=== PATIENT | female | born 1940 | race African-American/Black ===

== ENCOUNTER 2018-08-19 12:34 | Inpatient (IN) ==
[2018-08-19] MEDS ORDERED: ALBUTEROL/IPRATROPIUM 3 ML NEB RESP TX PRN (12:37)
[2018-08-19] MEDS: ALBUTEROL/IPRATROPIUM 3 ML NEB RESP TX SCH (20:30)
[2018-08-19 21:03] LABS: Albumin 3.7 G/DL (3.4-5.0); Bilirubin,Total 0.4 MG/DL (0.2-1.0); Calcium 8.8 MG/DL (8.5-10.1); Osmolality,Calculated 277.5 MOS/KG (273-304); Potassium 4.2 MMOL/L (3.5-5.1); Total Protein 7.4 G/DL (6.4-8.3)
[2018-08-19] MEDS ORDERED: predniSONE 20 MG TABLET PO ONE (23:57)
[2018-08-20] MEDS ORDERED: CLORAZEPATE 3.75 MG TABLET PO PRN (00:22)
[2018-08-20] MEDS ORDERED: CARISOPRODOL 350 MG TABLET PO PRN (00:22)
[2018-08-20] MEDS: CEFUROXIME 500 MG TABLET PO SCH ×3 (00:32→21:37)
[2018-08-20] MEDS: CLINDAMYCIN 150 MG CAPSULE PO SCH ×4 (00:33→21:38)
[2018-08-20 02:43] LABS: Apearance,Urine CLEAR (Clear); Bilirubin,Urine Negative (Negative); Blood, Urine Negative (Negative); Glucose,Urine (UA) Negative (Negative); Ketones,Urine Negative (Negative); Nitrite,Urine Negative (Negative); Protein,Urine Negative; RBC,Urine 4 /HPF (0-4); Urine Color Yellow (Yellow); Urine Specific Gravity 1.011 (1.001-1.035); Urine Urobilinogen < 2.0 EU/DL (0.2-1.0); WBC,Urine 4 /HPF (0-6)
[2018-08-20] MEDS: DEXTROSE 5% NACL 0.45% 1,000 ML IV SCH ×2 (03:42→13:50)
[2018-08-20] MEDS: MEROPENEM 1,000 MG in SODIUM CHLORIDE 0.9% 100 ML IV SCH ×4 (03:43→21:40)
[2018-08-20] MEDS: CLINDAMYCIN INJ 300 MG in PREMIX 1 EACH IV SCH ×4 (03:43→15:57)
[2018-08-20] MEDS: methylPREDNISolone SOD SUC 40 MG/1 ML VIAL IV SCH ×3 (03:43→21:33)
[2018-08-20 05:43] LABS: Basophils % 0.6 % (0.0-0.8); Hematocrit 42.2 VOL% (35.7-47.0); Hemoglobin 13.1 GM/DL (12.0-16.0); Immature Granulocytes % 0.4 %; Immature Granulocytes Absolute 0.03 #; Lymphocytes # 0.7 10*3/uL (1.4-4.0); Lymphocytes % 9.6 % (21.3-54.2); Mean Corpuscular Hemoglobin 28 PG (27-34); Mean Corpuscular Volume 89.2 FL (87-102); Mean Platelet Volume 9.6 FL (9.6-12.0); Monocytes # 0.2 10*3/uL (0.11-0.8); Monocytes % 2.9 % (1.7-12.7); Neutrophils # 6.3 10*3/uL (1.4-7.4); Neutrophils % 86.5 % (38.7-73.9); Platelet Count 221 T/CUMM (130-400); Red Blood Count 4.73 MC/CUMM (3.8-5.5); White Blood Count 7.3 T/CUMM (4-12)
[2018-08-20 05:52] LABS: INR 1.7; PT Patient Result 18.3 SECS
[2018-08-20 06:11] LABS: Calcium 8.8 MG/DL (8.5-10.1); Osmolality,Calculated 283.7 MOS/KG (273-304); Potassium 4.3 MMOL/L (3.5-5.1)
[2018-08-20] MEDS ORDERED: IPRATROPIUM 500 MCG/2.5 ML NEB RESP TX SCH (07:00)
[2018-08-20] MEDS: ALBUTEROL/IPRATROPIUM 3 ML NEB RESP TX SCH ×4 (07:17→19:16)
[2018-08-20] MEDS ORDERED: NON-FORMULARY MEDICATION (Alendronate [Fosamax] 70 MG) PO SCH (07:30)
[2018-08-20] MEDS ORDERED: NON-FORMULARY MEDICATION (Cod Liver Oil [Cod Liver Oil] 1 EACH) PO SCH (09:00)
[2018-08-20] MEDS ORDERED: methylPREDNISolone 4 MG TABLET PO SCH (09:00)
[2018-08-20] MEDS: FERROUS SULFATE 325 MG TABLET PO SCH ×2 (09:54→21:37)
[2018-08-20] MEDS: FLUTICASONE 50 MCG NASAL SPRAY 16 GM BOTTLE BOTH NARES SCH (09:54)
[2018-08-20] MEDS: CALCIUM (CARBONATE) 500 MG TABLET PO SCH (09:54)
[2018-08-20] MEDS: MAGNESIUM CHLORIDE 64 MG TABLET PO SCH ×2 (09:54→21:37)
[2018-08-20] MEDS: POTASSIUM CHLORIDE 20 MEQ TABLET PO SCH (09:54)
[2018-08-20] MEDS: FLUTICASONE/SALMETEROL 250-50 DISKUS 14 DOSE INH SCH (09:54)
[2018-08-20] MEDS: WARFARIN 4 MG TABLET PO SCH (17:40)
[2018-08-20] MEDS ORDERED: WARFARIN 4 MG TABLET PO SCH (18:00)
[2018-08-20] MEDS: MONTELUKAST 10 MG TABLET PO SCH (21:37)
[2018-08-21] MEDS: MEROPENEM 1,000 MG in SODIUM CHLORIDE 0.9% 100 ML IV SCH ×3 (03:49→21:29)
[2018-08-21] MEDS: CLINDAMYCIN INJ 300 MG in PREMIX 1 EACH IV SCH ×3 (05:44→22:33)
[2018-08-21] MEDS: CLINDAMYCIN 150 MG CAPSULE PO SCH (05:47)
[2018-08-21] MEDS: DEXTROSE 5% NACL 0.45% 1,000 ML IV SCH ×3 (06:23→22:49)
[2018-08-21 06:38] LABS: Basophils % 0.2 % (0.0-0.8); Hematocrit 38.2 VOL% (35.7-47.0); Hemoglobin 11.6 GM/DL (12.0-16.0); Immature Granulocytes % 0.4 %; Immature Granulocytes Absolute 0.02 #; Lymphocytes # 0.9 10*3/uL (1.4-4.0); Lymphocytes % 15.9 % (21.3-54.2); Mean Corpuscular HGB Conc 30.4 GM/DL (32-36); Mean Corpuscular Hemoglobin 27 PG (27-34); Mean Corpuscular Volume 89.9 FL (87-102); Mean Platelet Volume 9.5 FL (9.6-12.0); Monocytes # 0.3 10*3/uL (0.11-0.8); Monocytes % 5.5 % (1.7-12.7); Neutrophils # 4.3 10*3/uL (1.4-7.4); Platelet Count 199 T/CUMM (130-400); Red Blood Count 4.25 MC/CUMM (3.8-5.5); Red Cell Distribution Width 14.2 % (9.3-17.3); White Blood Count 5.5 T/CUMM (4-12)
[2018-08-21 06:46] LABS: INR 1.7; PT Patient Result 18.1 SECS
[2018-08-21 07:08] LABS: Calcium 8.8 MG/DL (8.5-10.1); Osmolality,Calculated 285.3 MOS/KG (273-304); Potassium 4.5 MMOL/L (3.5-5.1)
[2018-08-21] MEDS: ALBUTEROL/IPRATROPIUM 3 ML NEB RESP TX SCH ×4 (07:26→20:18)
[2018-08-21] MEDS: methylPREDNISolone SOD SUC 40 MG/1 ML VIAL IV SCH ×2 (08:57→21:26)
[2018-08-21] MEDS: CEFUROXIME 500 MG TABLET PO SCH (09:09)
[2018-08-21] MEDS: POTASSIUM CHLORIDE 20 MEQ TABLET PO SCH (09:13)
[2018-08-21] MEDS: MAGNESIUM CHLORIDE 64 MG TABLET PO SCH ×2 (09:13→21:31)
[2018-08-21] MEDS: CALCIUM (CARBONATE) 500 MG TABLET PO SCH (09:13)
[2018-08-21] MEDS: FERROUS SULFATE 325 MG TABLET PO SCH ×2 (09:13→21:32)
[2018-08-21] MEDS: FLUTICASONE 50 MCG NASAL SPRAY 16 GM BOTTLE BOTH NARES SCH (09:13)
[2018-08-21] MEDS: FLUTICASONE/SALMETEROL 250-50 DISKUS 14 DOSE INH SCH (09:14)
[2018-08-21] MEDS: WARFARIN 4 MG TABLET PO SCH (18:14)
[2018-08-21] MEDS: MONTELUKAST 10 MG TABLET PO SCH (21:32)
[2018-08-22] MEDS: MEROPENEM 1,000 MG in SODIUM CHLORIDE 0.9% 100 ML IV SCH ×3 (03:39→20:52)
[2018-08-22 05:24] LABS: Hematocrit 38.1 VOL% (35.7-47.0); Hemoglobin 11.4 GM/DL (12.0-16.0); Immature Granulocytes % 0.6 %; Immature Granulocytes Absolute 0.04 #; Lymphocytes # 0.8 10*3/uL (1.4-4.0); Lymphocytes % 13.1 % (21.3-54.2); Mean Corpuscular HGB Conc 29.9 GM/DL (32-36); Mean Corpuscular Hemoglobin 28 PG (27-34); Mean Corpuscular Volume 92.9 FL (87-102); Mean Platelet Volume 9.5 FL (9.6-12.0); Monocytes # 0.2 10*3/uL (0.11-0.8); Neutrophils # 5.4 10*3/uL (1.4-7.4); Neutrophils % 83.3 % (38.7-73.9); Platelet Count 182 T/CUMM (130-400); Red Cell Distribution Width 14.1 % (9.3-17.3); White Blood Count 6.4 T/CUMM (4-12)
[2018-08-22] MEDS: CLINDAMYCIN INJ 300 MG in PREMIX 1 EACH IV SCH ×3 (05:45→22:22)
[2018-08-22 05:54] LABS: Calcium 8.7 MG/DL (8.5-10.1); Osmolality,Calculated 277.7 MOS/KG (273-304); Potassium 4.9 MMOL/L (3.5-5.1)
[2018-08-22 06:52] LABS: INR 1.7; PT Patient Result 18.1 SECS
[2018-08-22] MEDS: ALBUTEROL/IPRATROPIUM 3 ML NEB RESP TX SCH ×4 (07:11→19:22)
[2018-08-22] MEDS: FLUTICASONE/SALMETEROL 250-50 DISKUS 14 DOSE INH SCH (09:08)
[2018-08-22] MEDS: FERROUS SULFATE 325 MG TABLET PO SCH ×2 (09:09→20:49)
[2018-08-22] MEDS: MAGNESIUM CHLORIDE 64 MG TABLET PO SCH ×2 (09:09→20:49)
[2018-08-22] MEDS: CALCIUM (CARBONATE) 500 MG TABLET PO SCH (09:09)
[2018-08-22] MEDS: POTASSIUM CHLORIDE 20 MEQ TABLET PO SCH (09:09)
[2018-08-22] MEDS: methylPREDNISolone SOD SUC 40 MG/1 ML VIAL IV SCH ×2 (09:09→20:47)
[2018-08-22] MEDS: FLUTICASONE 50 MCG NASAL SPRAY 16 GM BOTTLE BOTH NARES SCH (09:10)
[2018-08-22] MEDS: DEXTROSE 5% NACL 0.45% 1,000 ML IV SCH ×2 (13:17→16:18)
[2018-08-22] MEDS: WARFARIN 4 MG TABLET PO SCH (18:28)
[2018-08-22] MEDS: MONTELUKAST 10 MG TABLET PO SCH (20:49)
[2018-08-23] MEDS: MEROPENEM 1,000 MG in SODIUM CHLORIDE 0.9% 100 ML IV SCH ×3 (04:14→20:15)
[2018-08-23] MEDS: CLINDAMYCIN INJ 300 MG in PREMIX 1 EACH IV SCH (05:40)
[2018-08-23 06:25] LABS: Basophils % 0.1 % (0.0-0.8); Hematocrit 39.2 VOL% (35.7-47.0); Immature Granulocytes % 0.6 %; Immature Granulocytes Absolute 0.06 #; Lymphocytes # 1.3 10*3/uL (1.4-4.0); Mean Corpuscular HGB Conc 30.6 GM/DL (32-36); Mean Corpuscular Hemoglobin 28 PG (27-34); Mean Corpuscular Volume 89.9 FL (87-102); Mean Platelet Volume 9.1 FL (9.6-12.0); Monocytes # 0.4 10*3/uL (0.11-0.8); Monocytes % 4.4 % (1.7-12.7); Neutrophils # 8.1 10*3/uL (1.4-7.4); Neutrophils % 81.9 % (38.7-73.9); Platelet Count 240 T/CUMM (130-400); Red Blood Count 4.36 MC/CUMM (3.8-5.5); Red Cell Distribution Width 14.2 % (9.3-17.3); White Blood Count 9.9 T/CUMM (4-12)
[2018-08-23 06:31] LABS: INR 1.7; PT Patient Result 18.5 SECS
[2018-08-23 06:42] LABS: Calcium 9.3 MG/DL (8.5-10.1); Osmolality,Calculated 282.3 MOS/KG (273-304); Potassium 4.1 MMOL/L (3.5-5.1)
[2018-08-23] MEDS: ALBUTEROL/IPRATROPIUM 3 ML NEB RESP TX SCH ×4 (07:28→19:23)
[2018-08-23] MEDS: CALCIUM (CARBONATE) 500 MG TABLET PO SCH (09:49)
[2018-08-23] MEDS: POTASSIUM CHLORIDE 20 MEQ TABLET PO SCH (09:49)
[2018-08-23] MEDS: MAGNESIUM CHLORIDE 64 MG TABLET PO SCH ×2 (09:49→21:34)
[2018-08-23] MEDS: methylPREDNISolone SOD SUC 40 MG/1 ML VIAL IV SCH ×2 (09:50→20:15)
[2018-08-23] MEDS: FLUTICASONE 50 MCG NASAL SPRAY 16 GM BOTTLE BOTH NARES SCH (09:50)
[2018-08-23] MEDS: FLUTICASONE/SALMETEROL 250-50 DISKUS 14 DOSE INH SCH (09:50)
[2018-08-23] MEDS: FERROUS SULFATE 325 MG TABLET PO SCH ×3 (09:51→21:37)
[2018-08-23] MEDS: DEXTROSE 5% NACL 0.45% 1,000 ML IV SCH (13:30)
[2018-08-23] MEDS: PSYLLIUM POWDER 3.7 GM/PACK PO SCH ×2 (15:58→21:35)
[2018-08-23 16:17] LABS: Apearance,Urine CLEAR (Clear); Bilirubin,Urine Negative (Negative); Blood, Urine Negative (Negative); Glucose,Urine (UA) Negative (Negative); Ketones,Urine 5 mg/dL (Negative); Nitrite,Urine Negative (Negative); Protein,Urine Negative; RBC,Urine 1 /HPF (0-4); Urine Color Straw (Yellow); Urine Urobilinogen < 2.0 EU/DL (0.2-1.0); WBC,Urine 4 /HPF (0-6)
[2018-08-23] MEDS: WARFARIN 4 MG TABLET PO SCH (17:24)
[2018-08-23] MEDS: ROSUVASTATIN 10 MG TABLET PO SCH (21:34)
[2018-08-23] MEDS: MONTELUKAST 10 MG TABLET PO SCH (21:34)
[2018-08-24] MEDS: MEROPENEM 1,000 MG in SODIUM CHLORIDE 0.9% 100 ML IV SCH ×4 (03:57→22:05)
[2018-08-24 05:28] LABS: INR 1.6; PT Patient Result 17.7 SECS
[2018-08-24] MEDS: ALBUTEROL/IPRATROPIUM 3 ML NEB RESP TX SCH ×4 (07:11→20:22)
[2018-08-24] MEDS: CALCIUM (CARBONATE) 500 MG TABLET PO SCH (09:44)
[2018-08-24] MEDS: MAGNESIUM CHLORIDE 64 MG TABLET PO SCH ×2 (09:44→21:08)
[2018-08-24] MEDS: POTASSIUM CHLORIDE 20 MEQ TABLET PO SCH (09:44)
[2018-08-24] MEDS: FLUTICASONE 50 MCG NASAL SPRAY 16 GM BOTTLE BOTH NARES SCH (09:44)
[2018-08-24] MEDS: FLUTICASONE/SALMETEROL 250-50 DISKUS 14 DOSE INH SCH (09:44)
[2018-08-24] MEDS: methylPREDNISolone SOD SUC 40 MG/1 ML VIAL IV SCH ×2 (09:44→21:00)
[2018-08-24] MEDS: PSYLLIUM POWDER 3.7 GM/PACK PO SCH ×3 (09:44→21:09)
[2018-08-24] MEDS: FERROUS SULFATE 325 MG TABLET PO SCH ×3 (09:45→21:10)
[2018-08-24] MEDS: WARFARIN 4 MG TABLET PO SCH (18:10)
[2018-08-24] MEDS: MONTELUKAST 10 MG TABLET PO SCH (21:08)
[2018-08-25] MEDS: MEROPENEM 1,000 MG in SODIUM CHLORIDE 0.9% 100 ML IV SCH ×3 (05:04→16:27)
[2018-08-25 05:32] LABS: INR 1.4; PT Patient Result 14.9 SECS
[2018-08-25] MEDS: ALBUTEROL/IPRATROPIUM 3 ML NEB RESP TX SCH ×4 (07:21→19:26)
[2018-08-25] MEDS: methylPREDNISolone SOD SUC 40 MG/1 ML VIAL IV SCH ×2 (09:35→16:27)
[2018-08-25] MEDS: PSYLLIUM POWDER 3.7 GM/PACK PO SCH ×3 (09:53→22:16)
[2018-08-25] MEDS: FERROUS SULFATE 325 MG TABLET PO SCH ×3 (10:18→22:24)
[2018-08-25] MEDS: FLUTICASONE 50 MCG NASAL SPRAY 16 GM BOTTLE BOTH NARES SCH (10:18)
[2018-08-25] MEDS: MAGNESIUM CHLORIDE 64 MG TABLET PO SCH ×2 (10:18→22:15)
[2018-08-25] MEDS: FLUTICASONE/SALMETEROL 250-50 DISKUS 14 DOSE INH SCH (10:18)
[2018-08-25] MEDS: POTASSIUM CHLORIDE 20 MEQ TABLET PO SCH (10:18)
[2018-08-25] MEDS: CALCIUM (CARBONATE) 500 MG TABLET PO SCH (10:18)
[2018-08-25] MEDS ORDERED: WARFARIN 4 MG TABLET PO SCH (10:51)
[2018-08-25] MEDS: AZELASTINE NASAL 137 MCG/SPRAY 30 ML BOTTLE BOTH NARES SCH ×2 (12:43→22:15)
[2018-08-25] MEDS: WARFARIN 2 MG TABLET PO SCH (17:42)
[2018-08-25] MEDS: MONTELUKAST 10 MG TABLET PO SCH (22:15)
[2018-08-26] MEDS: MEROPENEM 1,000 MG in SODIUM CHLORIDE 0.9% 100 ML IV SCH ×3 (03:11→17:35)
[2018-08-26] MEDS: methylPREDNISolone SOD SUC 40 MG/1 ML VIAL IV SCH ×2 (04:51→17:33)
[2018-08-26 06:25] LABS: INR 1.4; PT Patient Result 15.2 SECS
[2018-08-26 06:29] LABS: Calcium 8.3 MG/DL (8.5-10.1); Osmolality,Calculated 282.4 MOS/KG (273-304); Potassium 4.5 MMOL/L (3.5-5.1)
[2018-08-26] MEDS: ALBUTEROL/IPRATROPIUM 3 ML NEB RESP TX SCH ×4 (08:05→19:18)
[2018-08-26] MEDS: FLUTICASONE 50 MCG NASAL SPRAY 16 GM BOTTLE BOTH NARES SCH (10:41)
[2018-08-26] MEDS: FLUTICASONE/SALMETEROL 250-50 DISKUS 14 DOSE INH SCH (10:41)
[2018-08-26] MEDS: FERROUS SULFATE 325 MG TABLET PO SCH ×2 (10:42→21:29)
[2018-08-26] MEDS: MAGNESIUM CHLORIDE 64 MG TABLET PO SCH ×2 (10:42→21:29)
[2018-08-26] MEDS: POTASSIUM CHLORIDE 20 MEQ TABLET PO SCH (10:42)
[2018-08-26] MEDS: CALCIUM (CARBONATE) 500 MG TABLET PO SCH (10:42)
[2018-08-26] MEDS: PSYLLIUM POWDER 3.7 GM/PACK PO SCH ×3 (10:43→21:29)
[2018-08-26] MEDS: AZELASTINE NASAL 137 MCG/SPRAY 30 ML BOTTLE BOTH NARES SCH ×2 (10:43→21:29)
[2018-08-26] MEDS: WARFARIN 2 MG TABLET PO SCH (17:32)
[2018-08-26] MEDS: ROSUVASTATIN 10 MG TABLET PO SCH (21:29)
[2018-08-26] MEDS: MONTELUKAST 10 MG TABLET PO SCH (21:29)
[2018-08-27] MEDS: MEROPENEM 1,000 MG in SODIUM CHLORIDE 0.9% 100 ML IV SCH ×3 (03:30→17:15)
[2018-08-27] MEDS: methylPREDNISolone SOD SUC 40 MG/1 ML VIAL IV SCH ×2 (05:00→17:16)
[2018-08-27 06:44] LABS: INR 1.7
[2018-08-27 06:56] LABS: Calcium 8.3 MG/DL (8.5-10.1); Osmolality,Calculated 285.3 MOS/KG (273-304); Potassium 4.5 MMOL/L (3.5-5.1)
[2018-08-27] MEDS: ALBUTEROL/IPRATROPIUM 3 ML NEB RESP TX SCH ×4 (07:36→19:35)
[2018-08-27] MEDS: MAGNESIUM CHLORIDE 64 MG TABLET PO SCH ×2 (08:48→21:38)
[2018-08-27] MEDS: CALCIUM (CARBONATE) 500 MG TABLET PO SCH (08:48)
[2018-08-27] MEDS: POTASSIUM CHLORIDE 20 MEQ TABLET PO SCH (08:48)
[2018-08-27] MEDS: PSYLLIUM POWDER 3.7 GM/PACK PO SCH ×3 (08:49→21:38)
[2018-08-27] MEDS: FERROUS SULFATE 325 MG TABLET PO SCH ×2 (08:49→21:38)
[2018-08-27] MEDS: FLUTICASONE 50 MCG NASAL SPRAY 16 GM BOTTLE BOTH NARES SCH (08:50)
[2018-08-27] MEDS: AZELASTINE NASAL 137 MCG/SPRAY 30 ML BOTTLE BOTH NARES SCH ×2 (08:51→21:38)
[2018-08-27] MEDS: FLUTICASONE/SALMETEROL 250-50 DISKUS 14 DOSE INH SCH (08:52)
[2018-08-27] MEDS: WARFARIN 2 MG TABLET PO SCH (17:15)
[2018-08-27] MEDS ORDERED: CARISOPRODOL 350 MG TABLET PO PRN (17:25)
[2018-08-27] MEDS: CLORAZEPATE 3.75 MG TABLET PO PRN (17:35)
[2018-08-27] MEDS: MONTELUKAST 10 MG TABLET PO SCH (21:38)
[2018-08-28] MEDS: MEROPENEM 1,000 MG in SODIUM CHLORIDE 0.9% 100 ML IV SCH ×3 (02:36→17:50)
[2018-08-28] MEDS: methylPREDNISolone SOD SUC 40 MG/1 ML VIAL IV SCH ×2 (05:08→17:50)
[2018-08-28 07:01] LABS: PT Patient Result 21.5 SECS
[2018-08-28] MEDS: ALBUTEROL/IPRATROPIUM 3 ML NEB RESP TX SCH ×4 (07:30→19:26)
[2018-08-28] MEDS: AZELASTINE NASAL 137 MCG/SPRAY 30 ML BOTTLE BOTH NARES SCH ×2 (08:39→21:15)
[2018-08-28] MEDS: PSYLLIUM POWDER 3.7 GM/PACK PO SCH ×3 (08:40→22:18)
[2018-08-28] MEDS: MAGNESIUM CHLORIDE 64 MG TABLET PO SCH ×2 (08:40→21:15)
[2018-08-28] MEDS: FLUTICASONE 50 MCG NASAL SPRAY 16 GM BOTTLE BOTH NARES SCH (08:40)
[2018-08-28] MEDS: FERROUS SULFATE 325 MG TABLET PO SCH ×2 (08:40→22:18)
[2018-08-28] MEDS: FLUTICASONE/SALMETEROL 250-50 DISKUS 14 DOSE INH SCH (08:40)
[2018-08-28] MEDS: POTASSIUM CHLORIDE 20 MEQ TABLET PO SCH (08:41)
[2018-08-28] MEDS: CALCIUM (CARBONATE) 500 MG TABLET PO SCH (08:41)
[2018-08-28] MEDS: CLORAZEPATE 3.75 MG TABLET PO PRN (11:47)
[2018-08-28] MEDS: WARFARIN 3 MG TABLET PO SCH (17:50)
[2018-08-28] MEDS: MONTELUKAST 10 MG TABLET PO SCH (21:15)
[2018-08-29] MEDS: MEROPENEM 1,000 MG in SODIUM CHLORIDE 0.9% 100 ML IV SCH ×3 (02:37→18:34)
[2018-08-29] MEDS: methylPREDNISolone SOD SUC 40 MG/1 ML VIAL IV SCH ×2 (06:03→18:34)
[2018-08-29 06:22] LABS: INR 2.3; PT Patient Result 24.7 SECS
[2018-08-29] MEDS: ALBUTEROL/IPRATROPIUM 3 ML NEB RESP TX SCH ×4 (07:30→19:51)
[2018-08-29] MEDS: AZELASTINE NASAL 137 MCG/SPRAY 30 ML BOTTLE BOTH NARES SCH ×2 (08:13→22:40)
[2018-08-29] MEDS: FLUTICASONE/SALMETEROL 250-50 DISKUS 14 DOSE INH SCH (08:16)
[2018-08-29] MEDS: FERROUS SULFATE 325 MG TABLET PO SCH ×2 (08:16→22:40)
[2018-08-29] MEDS: POTASSIUM CHLORIDE 20 MEQ TABLET PO SCH (08:16)
[2018-08-29] MEDS: CALCIUM (CARBONATE) 500 MG TABLET PO SCH (08:16)
[2018-08-29] MEDS: MAGNESIUM CHLORIDE 64 MG TABLET PO SCH ×2 (08:16→22:38)
[2018-08-29] MEDS: PSYLLIUM POWDER 3.7 GM/PACK PO SCH ×3 (08:17→22:40)
[2018-08-29] MEDS: FLUTICASONE 50 MCG NASAL SPRAY 16 GM BOTTLE BOTH NARES SCH (08:19)
[2018-08-29] MEDS: CLORAZEPATE 3.75 MG TABLET PO PRN (10:59)
[2018-08-29] MEDS: WARFARIN 3 MG TABLET PO SCH (18:33)
[2018-08-29] MEDS: MONTELUKAST 10 MG TABLET PO SCH (22:38)
[2018-08-30] MEDS: MEROPENEM 1,000 MG in SODIUM CHLORIDE 0.9% 100 ML IV SCH ×2 (03:01→10:25)
[2018-08-30 05:23] LABS: Basophils % 0.2 % (0.0-0.8); Hemoglobin 11.9 GM/DL (12.0-16.0); Immature Granulocytes % 1.2 %; Immature Granulocytes Absolute 0.12 #; Lymphocytes # 0.8 10*3/uL (1.4-4.0); Lymphocytes % 7.6 % (21.3-54.2); Mean Corpuscular HGB Conc 31.3 GM/DL (32-36); Mean Corpuscular Hemoglobin 28 PG (27-34); Mean Corpuscular Volume 89.4 FL (87-102); Mean Platelet Volume 9.2 FL (9.6-12.0); Monocytes # 0.5 10*3/uL (0.11-0.8); Monocytes % 4.8 % (1.7-12.7); Neutrophils # 8.5 10*3/uL (1.4-7.4); Neutrophils % 86.2 % (38.7-73.9); Platelet Count 208 T/CUMM (130-400); Red Blood Count 4.25 MC/CUMM (3.8-5.5); Red Cell Distribution Width 14.6 % (9.3-17.3); White Blood Count 9.9 T/CUMM (4-12)
[2018-08-30 05:44] LABS: INR 2.7
[2018-08-30] MEDS: methylPREDNISolone SOD SUC 40 MG/1 ML VIAL IV SCH (05:49)
[2018-08-30 06:02] LABS: PT Patient Result 29.3 SECS
[2018-08-30 06:11] LABS: Calcium 8.2 MG/DL (8.5-10.1); Osmolality,Calculated 282.4 MOS/KG (273-304); Potassium 4.6 MMOL/L (3.5-5.1)
[2018-08-30] MEDS: ALBUTEROL/IPRATROPIUM 3 ML NEB RESP TX SCH ×4 (07:33→19:38)
[2018-08-30] MEDS: FERROUS SULFATE 325 MG TABLET PO SCH ×2 (10:24→21:37)
[2018-08-30] MEDS: AZELASTINE NASAL 137 MCG/SPRAY 30 ML BOTTLE BOTH NARES SCH ×2 (10:24→21:45)
[2018-08-30] MEDS: CALCIUM (CARBONATE) 500 MG TABLET PO SCH (10:24)
[2018-08-30] MEDS: POTASSIUM CHLORIDE 20 MEQ TABLET PO SCH (10:24)
[2018-08-30] MEDS: MAGNESIUM CHLORIDE 64 MG TABLET PO SCH ×2 (10:24→21:36)
[2018-08-30] MEDS: FLUTICASONE 50 MCG NASAL SPRAY 16 GM BOTTLE BOTH NARES SCH (10:25)
[2018-08-30] MEDS: FLUTICASONE/SALMETEROL 250-50 DISKUS 14 DOSE INH SCH (10:27)
[2018-08-30] MEDS: PSYLLIUM POWDER 3.7 GM/PACK PO SCH ×4 (10:27→21:45)
[2018-08-30] MEDS: prednisoLONE 5 MG TABLET PO SCH ×2 (12:31→21:38)
[2018-08-30] MEDS: ROSUVASTATIN 10 MG TABLET PO SCH (21:36)
[2018-08-30] MEDS: CEFUROXIME 500 MG TABLET PO SCH (21:37)
[2018-08-30] MEDS: MONTELUKAST 10 MG TABLET PO SCH (23:54)
[2018-08-31] MEDS: ALBUTEROL/IPRATROPIUM 3 ML NEB RESP TX SCH ×2 (07:42→11:09)
[2018-08-31] MEDS: FERROUS SULFATE 325 MG TABLET PO SCH (09:02)
[2018-08-31] MEDS: CALCIUM (CARBONATE) 500 MG TABLET PO SCH (09:03)
[2018-08-31] MEDS: MAGNESIUM CHLORIDE 64 MG TABLET PO SCH (09:04)
[2018-08-31] MEDS: POTASSIUM CHLORIDE 20 MEQ TABLET PO SCH (09:04)
[2018-08-31] MEDS: CEFUROXIME 500 MG TABLET PO SCH (09:04)
[2018-08-31] MEDS: prednisoLONE 5 MG TABLET PO SCH (09:05)
[2018-08-31] MEDS: FLUTICASONE/SALMETEROL 250-50 DISKUS 14 DOSE INH SCH (09:06)
[2018-08-31] MEDS: AZELASTINE NASAL 137 MCG/SPRAY 30 ML BOTTLE BOTH NARES SCH (09:06)
[2018-08-31] MEDS: FLUTICASONE 50 MCG NASAL SPRAY 16 GM BOTTLE BOTH NARES SCH (09:07)
[2018-08-31 11:09] LABS: INR 2.7
[2018-08-31 11:16] LABS: PT Patient Result 29.4 SECS
[2018-08-31 12:07] VITALS: BP 122/71
[2018-08-31] MEDS: PSYLLIUM POWDER 3.7 GM/PACK PO SCH (12:15)
== END 2018-08-31 14:45 | disposition home health service (06) | DRG 202 ==
LOC: N.5E 17:25
PROVIDERS: ADMIT Internal Medicine Pulmonary Disease; ATTEND Internal Medicine Pulmonary Disease

== ENCOUNTER 2020-11-25 17:20 | Inpatient (IN) ==
[2020-11-25] MEDS ORDERED: methylPREDNISolone SOD SUC 125 MG/2 ML VIAL IV STA (18:00)
[2020-11-25 18:11] LABS: ABG Base Excess 1.3 MMOL/L (-2.5-2.5); ABG HCO3 25.2 MMOL/L (20-26); ABG Oxygen Saturation 74.7 % (95-100); ABG PO2 61.1 MM HG (80-95); ABG TCO2 34.7 MMOL/L (23-27)
[2020-11-25 18:14] LABS: ABG PH 7.065 (7.35-7.45)
[2020-11-25] MEDS ORDERED: ETOMIDATE 20 MG/10 ML VIAL IV STA (18:15)
[2020-11-25] MEDS ORDERED: ROCURONIUM 100 MG/10 ML VIAL IV STA (18:15)
[2020-11-25 18:25] LABS: Basophils % 0.3 % (0.0-0.8); Eosinophils % 0.2 % (0.00-10.9); Hematocrit 36.7 VOL% (35.7-47.0); Hemoglobin 10.3 GM/DL (12.0-16.0); Immature Granulocytes % 1.1 %; Immature Granulocytes Absolute 0.15 #; Lymphocytes # 5.3 10*3/uL (1.4-4.0); Lymphocytes % 39.9 % (21.3-54.2); Mean Corpuscular HGB Conc 28.1 GM/DL (32-36); Mean Corpuscular Volume 96.3 FL (87-102); Mean Platelet Volume 9.8 FL (9.6-12.0); Monocytes % 5.4 % (1.7-12.7); NRBC # 0.02 10*3/uL; Neutrophils % 53.1 % (38.7-73.9); Platelet Count 269 T/CUMM (130-400); Red Blood Count 3.81 MC/CUMM (3.8-5.5); Red Cell Distribution Width 14.6 % (9.3-17.3); White Blood Count 13.2 T/CUMM (4-12)
[2020-11-25] MEDS ORDERED: ETOMIDATE 20 MG/10 ML VIAL IV ONE (18:35)
[2020-11-25] MEDS ORDERED: ROCURONIUM 100 MG/10 ML VIAL IV ONE (18:35)
[2020-11-25] MEDS ORDERED: SODIUM CHLORIDE 0.9% 500 ML IV STA (18:43)
[2020-11-25 18:47] LABS: PT Patient Result 16.9 SECS (9.8-11.9)
[2020-11-25 18:49] LABS: INR 1.6
[2020-11-25 18:54] LABS: Alanine Aminotransferase < 9 U/L (13-56); Albumin 3.3 G/DL (3.4-5.0); Alkaline Phosphatase 40 U/L (45-117); Aspartate Amino Transferase 22 U/L (0-37); Blood Urea Nitrogen 28 MG/DL (7-18); Calcium 8.7 MG/DL (8.5-10.1); Carbon Dioxide 30 MMOL/L (21-32); Estimated Glom Filtration Rate 33 ML/MIN; Ferritin 58.3 ng/ml (8-252); Glucose 286 MG/DL (74-106); Osmolality,Calculated 290.7 MOS/KG (273-304); Sodium 138 MMOL/L (136-145); Total Protein 6.8 G/DL (5.0-7.5)
[2020-11-25] MEDS ORDERED: PIPERACILLIN/TAZOBACTAM 3,375 MG in SODIUM CHLORIDE 0.9% 100 ML IV STA (18:55)
[2020-11-25] MEDS ORDERED: SODIUM CHLORIDE 0.9% 1,000 ML IV STA (19:00)
[2020-11-25 19:08] LABS: Bilirubin,Urine Negative (Negative); Blood, Urine Negative (Negative); Glucose,Urine (UA) Negative (Negative); Hyaline Casts,Urine 11 /LPF (0-3); Ketones,Urine Negative (Negative); Mucus,Urine Occasional /LPF (Occasional); Nitrite,Urine Negative (Negative); Protein,Urine Negative; RBC,Urine 5 /HPF (0-4); Squamous Epithelial Cell,Urine Occasional /HPF (0-10); Urine Appearance CLEAR (Clear); Urine Color Yellow (Yellow); Urine Specific Gravity 1.025 (1.001-1.035); Urine Urobilinogen < 2.0 EU/DL (0.2-1.0); WBC,Urine 9 /HPF (0-6)
[2020-11-25 19:19] LABS: ABG Base Excess 6.6 MMOL/L (-2.5-2.5); ABG HCO3 30.3 MMOL/L (20-26); ABG Oxygen Saturation 93.1 % (95-100); ABG PCO2 54.7 MM HG (35-48); ABG PH 7.388 (7.35-7.45); ABG PO2 70.6 MM HG (80-95); ABG TCO2 30.1 MMOL/L (23-27); Allen Test Positive; Pt O2 Delivery Device Ventilator
[2020-11-25] MEDS: ALBUTEROL/IPRATROPIUM 3 ML NEB RESP TX STA ×2 (19:55)
[2020-11-25] MEDS: MIDAZOLAM 100 MG in SODIUM CHLORIDE 0.9% 80 ML IV PRN (21:22)
[2020-11-25] MEDS ORDERED: ALBUTEROL 2.5 MG/3 ML NEB RESP TX PRN (21:49)
[2020-11-25] MEDS ORDERED: DOBUTamine 500 MG/250 ML PREMIX IV PRN (21:55)
[2020-11-25 22:54] LABS: % Iron Saturation 27.3 % (18-50)
[2020-11-25 23:04] LABS: Folate 8.2 NG/ML (5.38-24.0)
[2020-11-25] MEDS: AZITHROMYCIN INJ 250 MG in SODIUM CHLORIDE 0.9% 250 ML IV SCH (23:09)
[2020-11-26] MEDS: PANTOPRAZOLE 40 MG VIAL IV SCH (00:09)
[2020-11-26] MEDS: methylPREDNISolone SOD SUC 40 MG/1 ML VIAL IV SCH ×4 (00:13→18:29)
[2020-11-26] MEDS: VANCOMYCIN INJ 750 MG in SODIUM CHLORIDE 0.9% 250 ML IV SCH (00:16)
[2020-11-26] MEDS: ALBUTEROL/IPRATROPIUM 3 ML NEB RESP TX SCH ×4 (01:06→19:09)
[2020-11-26 03:25] LABS: ABG Base Excess 6.8 MMOL/L (-2.5-2.5); ABG HCO3 30.8 MMOL/L (20-26); ABG PCO2 41.4 MM HG (35-48); ABG PH 7.489 (7.35-7.45); ABG PO2 195.2 MM HG (80-95); Allen Test Positive; Pt O2 Delivery Device Ventilator
[2020-11-26] MEDS: PIPERACILLIN/TAZOBACTAM 3,375 MG in SODIUM CHLORIDE 0.9% 100 ML IV SCH ×3 (04:30→20:50)
[2020-11-26 04:50] LABS: INR 1.9; PT Patient Result 19.8 SECS (9.8-11.9)
[2020-11-26 05:08] LABS: Osmolality,Calculated 292.1 MOS/KG (273-304); Risk Ratio 1.68; Thyroid Stimulating Hormone 0.284 uIU/ml (0.358-3.74)
[2020-11-26] MEDS ORDERED: POTASSIUM CHLORIDE RIDER 20 MEQ in PREMIX 1 EACH IV PRN (05:27)
[2020-11-26] MEDS ORDERED: POTASSIUM CHLORIDE 20 MEQ/15 ML UDCUP PER TUBE PRN (05:27)
[2020-11-26 05:36] LABS: Basophils % 0.1 % (0.0-0.8); Hematocrit 26.2 VOL% (35.7-47.0); Immature Granulocytes % 0.6 %; Immature Granulocytes Absolute 0.08 #; Lymphocytes # 0.3 10*3/uL (1.4-4.0); Lymphocytes % 1.9 % (21.3-54.2); Mean Corpuscular HGB Conc 30.5 GM/DL (32-36); Mean Platelet Volume 9.6 FL (9.6-12.0); Monocytes % 2.1 % (1.7-12.7); Neutrophils % 95.3 % (38.7-73.9); Platelet Count 183 T/CUMM (130-400); Red Blood Count 2.88 MC/CUMM (3.8-5.5); Red Cell Distribution Width 14.6 % (9.3-17.3); White Blood Count 14.4 T/CUMM (4-12)
[2020-11-26 05:50] LABS: Band Neutrophils 3 % (0-10); Hypochromasia 1+; Lymphocytes 2 % (20-55); Microcytosis 1+; Ovalocytes Slight; Segmented Neutrophils 94 % (50-85); Tear Drop Cells Slight; Total Cells Counted 100
[2020-11-26 05:51] LABS: Platelet Estimate Adequate
[2020-11-26] MEDS: BUDESONIDE 0.5 MG/2 ML NEB RESP TX SCH ×2 (07:34→19:09)
[2020-11-26] MEDS ORDERED: MAGNESIUM SULF RIDER 2 GM in PREMIX 1 EACH IV ONE (08:30)
[2020-11-26] MEDS: ASPIRIN EC 81 MG TABLET PO SCH (08:30)
[2020-11-26] MEDS: ROSUVASTATIN 10 MG TABLET PO SCH (08:31)
[2020-11-26] MEDS: ENOXAPARIN 60 MG/0.6 ML SYRINGE SUBCUT SCH ×2 (08:31→20:51)
[2020-11-26] MEDS: CARBIDOPA/LEVODOPA 25-100 MG TABLET PO SCH ×3 (08:31→20:51)
[2020-11-26] MEDS ORDERED: GLUCAGON 1 MG VIAL IM PRN (08:37)
[2020-11-26] MEDS ORDERED: DEXTROSE 50% 25 GM/50 ML VIAL IV PRN (08:37)
[2020-11-26] MEDS ORDERED: ENOXAPARIN 30 MG/0.3 ML SYRINGE SUBCUT SCH (09:00)
[2020-11-26] MEDS ORDERED: SODIUM CHLORIDE 0.9% 1,000 ML IV ONE (11:00)
[2020-11-26] MEDS: INSULIN REGULAR 100 UNIT/ML SUBCUT SCH ×2 (11:07→18:09)
[2020-11-26] MEDS ORDERED: MORPHINE 4 MG/1 ML VIAL IV PRN (16:47)
[2020-11-26] MEDS: MIDAZOLAM 100 MG in SODIUM CHLORIDE 0.9% 80 ML IV PRN (16:53)
[2020-11-26] MEDS ORDERED: WARFARIN 2 MG TABLET PO SCH (18:00)
[2020-11-26] MEDS ORDERED: METOPROLOL TARTRATE 25 MG TABLET PO SCH (21:00)
[2020-11-27] MEDS: ALBUTEROL/IPRATROPIUM 3 ML NEB RESP TX SCH ×4 (00:26→19:41)
[2020-11-27] MEDS: INSULIN REGULAR 100 UNIT/ML SUBCUT SCH ×5 (01:03→23:52)
[2020-11-27] MEDS: PANTOPRAZOLE 40 MG VIAL IV SCH ×2 (01:04→23:53)
[2020-11-27] MEDS: AZITHROMYCIN INJ 250 MG in SODIUM CHLORIDE 0.9% 250 ML IV SCH ×2 (01:04→23:53)
[2020-11-27] MEDS: methylPREDNISolone SOD SUC 40 MG/1 ML VIAL IV SCH ×3 (01:04→18:44)
[2020-11-27] MEDS: VANCOMYCIN INJ 750 MG in SODIUM CHLORIDE 0.9% 250 ML IV SCH (02:00)
[2020-11-27 04:32] LABS: Allen Test Positive; Pt O2 Delivery Device Ventilator
[2020-11-27 04:33] LABS: ABG Base Excess -3.3 MMOL/L (-2.5-2.5); ABG HCO3 21.7 MMOL/L (20-26); ABG PH 7.334 (7.35-7.45); ABG TCO2 21.2 MMOL/L (23-27)
[2020-11-27] MEDS: PIPERACILLIN/TAZOBACTAM 3,375 MG in SODIUM CHLORIDE 0.9% 100 ML IV SCH (04:43)
[2020-11-27 05:57] LABS: Basophils % 0.1 % (0.0-0.8); Hematocrit 24.2 VOL% (35.7-47.0); Hemoglobin 7.2 GM/DL (12.0-16.0); Immature Granulocytes % 1.5 %; Immature Granulocytes Absolute 0.17 #; Lymphocytes # 0.3 10*3/uL (1.4-4.0); Lymphocytes % 2.6 % (21.3-54.2); Mean Corpuscular HGB Conc 29.8 GM/DL (32-36); Mean Corpuscular Volume 92.4 FL (87-102); Mean Platelet Volume 10.2 FL (9.6-12.0); Monocytes % 6.6 % (1.7-12.7); NRBC # 0.03 10*3/uL; Neutrophils % 89.2 % (38.7-73.9); Platelet Count 187 T/CUMM (130-400); Red Blood Count 2.62 MC/CUMM (3.8-5.5); White Blood Count 11.6 T/CUMM (4-12)
[2020-11-27 06:15] LABS: Calcium 7.2 MG/DL (8.5-10.1); Osmolality,Calculated 297.1 MOS/KG (273-304)
[2020-11-27 06:17] LABS: PT Patient Result 30.3 SECS (9.8-11.9)
[2020-11-27 06:25] LABS: Band Neutrophils 3 % (0-10); Hypochromasia 1+; Lymphocytes 4 % (20-55); Microcytosis 1+; Ovalocytes Slight; Segmented Neutrophils 90 % (50-85); Total Cells Counted 100
[2020-11-27 06:26] LABS: Platelet Estimate Adequate
[2020-11-27] MEDS: BUDESONIDE 0.5 MG/2 ML NEB RESP TX SCH ×2 (07:19→19:41)
[2020-11-27] MEDS ORDERED: SODIUM CHLORIDE 0.9% 1,000 ML IV PRN (07:21)
[2020-11-27] MEDS: ASPIRIN EC 81 MG TABLET PO SCH (08:46)
[2020-11-27] MEDS: ROSUVASTATIN 10 MG TABLET PO SCH (08:47)
[2020-11-27] MEDS: cefTRIAXone 1,000 MG in SYRINGE 1 EACH IV SCH (09:33)
[2020-11-27] MEDS ORDERED: DIGOXIN 0.5 MG/2 ML AMP IV ONE (11:41)
[2020-11-27] MEDS ORDERED: FUROSEMIDE 40 MG/4 ML VIAL IV ONE (14:19)
[2020-11-27] MEDS ORDERED: PIPERACILLIN/TAZOBACTAM 3,375 MG in SODIUM CHLORIDE 0.9% 100 ML IV SCH (16:00)
[2020-11-27 18:17] VITALS: BP 96/64
[2020-11-27 18:17] LABS: Hematocrit 31.3 VOL% (35.7-47.0); Hemoglobin 9.3 GM/DL (12.0-16.0)
[2020-11-27] MEDS: MIDAZOLAM 100 MG in SODIUM CHLORIDE 0.9% 80 ML IV PRN (20:01)
[2020-11-27] MEDS: PHENYLEPHRINE INJ 160 MG in SODIUM CHLORIDE 0.9% 234 ML IV PRN (20:50)
[2020-11-28] MEDS: ALBUTEROL/IPRATROPIUM 3 ML NEB RESP TX SCH ×4 (00:16→19:49)
[2020-11-28 04:56] LABS: ABG Base Excess -8.5 MMOL/L (-2.5-2.5); ABG HCO3 17.2 MMOL/L (20-26); ABG Oxygen Saturation 71.3 % (95-100); ABG PCO2 45.8 MM HG (35-48); ABG PH 7.224 (7.35-7.45); ABG PO2 48.7 MM HG (80-95); ABG TCO2 17.8 MMOL/L (23-27)
[2020-11-28] MEDS: INSULIN REGULAR 100 UNIT/ML SUBCUT SCH ×2 (05:34→12:59)
[2020-11-28 05:40] LABS: Basophils % 0.3 % (0.0-0.8); Eosinophils # 0.1 10*3/uL (0.0-0.87); Eosinophils % 0.4 % (0.00-10.9); Hematocrit 31.6 VOL% (35.7-47.0); Hemoglobin 9.3 GM/DL (12.0-16.0); Immature Granulocytes % 2.8 %; Immature Granulocytes Absolute 0.32 #; Lymphocytes # 0.3 10*3/uL (1.4-4.0); Lymphocytes % 2.9 % (21.3-54.2); Mean Corpuscular HGB Conc 29.4 GM/DL (32-36); Mean Corpuscular Volume 94.6 FL (87-102); Monocytes % 4.5 % (1.7-12.7); NRBC # 0.64 10*3/uL; Neutrophils % 89.1 % (38.7-73.9); Red Blood Count 3.34 MC/CUMM (3.8-5.5); White Blood Count 11.4 T/CUMM (4-12)
[2020-11-28 05:41] LABS: Platelet Count 84 T/CUMM (130-400)
[2020-11-28] MEDS: methylPREDNISolone SOD SUC 40 MG/1 ML VIAL IV SCH (05:43)
[2020-11-28 05:51] LABS: INR 4.3
[2020-11-28 05:58] LABS: Hypochromasia 1+; Lymphocytes 3 % (20-55); Microcytosis 1+; Nucleated Red Blood Cells 8 (0-5); Platelet Estimate Decreased; Segmented Neutrophils 95 % (50-85); Total Cells Counted 100
[2020-11-28 06:08] LABS: Calcium 7.4 MG/DL (8.5-10.1); Osmolality,Calculated 303.3 MOS/KG (273-304); Potassium 5.3 MMOL/L (3.5-5.1)
[2020-11-28 06:16] LABS: Albumin 2.5 G/DL (3.4-5.0); Calcium 7.4 MG/DL (8.5-10.1); Osmolality,Calculated 298.5 MOS/KG (273-304); Potassium 5.4 MMOL/L (3.5-5.1); Total Protein 5.7 G/DL (5.0-7.5)
[2020-11-28] MEDS: BUDESONIDE 0.5 MG/2 ML NEB RESP TX SCH ×2 (07:41→19:54)
[2020-11-28] MEDS ORDERED: DIGOXIN 0.5 MG/2 ML AMP IV ONE (07:49)
[2020-11-28 07:52] LABS: Barbiturates Screen,Urine Negative (Negative); Benzodiazepines Screen,Urine Positive (Negative); Cannabinoid Screen,Urine Negative (Negative); Opiate Screen,Urine Positive (Negative); Phencyclidine Screen,Urine Negative (Negative)
[2020-11-28] MEDS ORDERED: NOREPINEPHRINE 16 MG in SODIUM CHLORIDE 0.9% 234 ML IV PRN (08:02)
[2020-11-28] MEDS: cefTRIAXone 1,000 MG in SYRINGE 1 EACH IV SCH (08:42)
[2020-11-28] MEDS: PHENYLEPHRINE INJ 160 MG in SODIUM CHLORIDE 0.9% 234 ML IV PRN (08:53)
[2020-11-28] MEDS ORDERED: ASPIRIN CHEW 81 MG TABLET PO SCH ×2 (09:00→12:30)
[2020-11-28 09:09] LABS: Hepatitis B Core IgM Quant 0.12 Index; Hepatitis B Surface Ag Quant < 0.10 Index; Hepatitis B Surface Ag Result Non-Reactive (NonReactive); Hepatitis C Virus Ab Quant 0.06 Index; Hepatitis C Virus Ab Result Non-Reactive (NonReactive)
[2020-11-28] MEDS ORDERED: MEROPENEM 500 MG in SODIUM CHLORIDE 0.9% 100 ML IV SCH (10:00)
[2020-11-28] MEDS ORDERED: SODIUM CHLORIDE 0.9% 1,000 ML IV SCH (10:00)
[2020-11-28] MEDS ORDERED: SODIUM BICARB INJ 150 MEQ in STERILE WATER INJ 850 ML IV SCH (11:30)
[2020-11-28 12:04] LABS: Hematocrit 31.6 VOL% (35.7-47.0)
[2020-11-28] MEDS ORDERED: SODIUM BICARBONATE 50 MEQ/50 ML VIAL IV ONE ×4 (14:10→14:35)
[2020-11-28] MEDS ORDERED: MORPHINE 4 MG/1 ML VIAL IV PRN (17:55)
[2020-11-28] MEDS ORDERED: LORazepam 2 MG/1 ML VIAL IV PRN (17:55)
[2020-11-28] MEDS ORDERED: LORazepam 2 MG/1 ML VIAL ONE (18:01)
== END 2020-11-28 18:15 | disposition expired | DRG 871 ==
LOC: EDUNIT# → EDBD → N.ED 17:20 → N.EDINP 20:20 → N.CC 20:37
PROVIDERS: ADMIT Internal Medicine; ATTEND Internal Medicine